=== PATIENT | female | born 1990 | race Caucasian/White ===

== ENCOUNTER 2017-11-26 23:09 | Emergency (ER) | payer BC ==
[~2017-11-26] VITALS: Ht 167.6 cm; Wt 54.4 kg
--- NOTE | 2017-11-26 23:40 | NUR ---
PT AMBULATORY TO ER BED 16. BIBSELF RIGHT HAND MIDDLE FINGER LACERATION. PT PLACED ON PIE BOTTOMER. VSS/RESP EVEN UNLABORED/NAD NOTED/SKIN WARM AND DRY/DENIES N-V-D/AFEBRILE/AOX4. AWAITING MD [place].
[2017-11-27] MEDS ORDERED: LIDOCAINE 1% INJ 50 ML MDV IJ ONE ×2 (00:03→01:00)
--- NOTE | 2017-11-27 00:05 | NUR ---
SUTURE SETUP AT BEDSIDE.
--- NOTE | 2017-11-27 00:12 | NUR ---
AT BEDSIDE FOR SUTURE.
--- NOTE | 2017-11-27 00:33 | NUR ---
EMT AT BEDSIDE FOR DRESSING TO LACERATION.
[2017-11-27 00:55] VITALS: BP 124/72
--- NOTE | 2017-11-27 00:56 | NUR ---
Patient discharged to home in stable condition. Written and verbal after care instructions given. Patient verbalizes understanding of instruction. Patient ambulatory with a steady gait.
== END 2017-11-27 00:58 | disposition home or self-care (01) ==
LOC: ER 23:11
DX: S61.212A Laceration without foreign body of right middle finger without damage to nail, initial encounter (principal); W45.8XXA Other foreign body or object entering through skin, initial encounter; Y93.89 Activity, other specified; Y92.89 Other specified places as the place of occurrence of the external cause; Y99.8 Other external cause status
CPT/HCPCS: A4606; A6402; J3490; Z7610